=== PATIENT | female | born 1935 | race Caucasian/White ===

== ENCOUNTER 2017-08-09 15:11 | Emergency (ER) | payer MEDICARE, BC ==
[2017-08-09 16:12] LABS: BASOPHILS 0.2 % (0-2); EOSINOPHILS 0.4 % (0-7); HEMATOCRIT 35.9 % (36.0-48.0); HEMOGLOBIN 11.5 g/dL (12-16); IMMATURE GRANULOCYTES 0.2 % (0-5); LYMPHOCYTES 21.2 % (15-50); MCH 31.9 pg (26.0-34.0); MCV 99.4 fL (80.0-100.0); MEAN PLATELET VOLUME 11.2 fL (7.4-10.4); MONOCYTES 8.3 % (2-11); NEUTROPHILS 69.7 % (40-80); PLATELET COUNT 171 10x3/uL (130-400); RBC 3.61 10x6/uL (4.00-5.40); RDW 13.5 % (11.5-14.5); WBC 9.2 10x3/uL (4.8-10.8)
[2017-08-09 16:34] LABS: ALBUMIN 3.5 g/dL (3.4-5.0); ALKALINE PHOSPHATASE 61 U/L (46-116); ALT (SGPT) 25 U/L (10-68); CALC OSMOLALITY 280 mosm/kg (275-300); CALCIUM 9.2 mg/dL (8.5-10.1); CARBON DIOXIDE 24.9 mmol/L (21.0-32.0); CHLORIDE - SERUM 105 mmol/L (98-107); CREATININE - SERUM 1.4 mg/dL (0.6-1.3); GLUCOSE 101 mg/dL (74-106); POTASSIUM - SERUM 3.8 mmol/L (3.5-5.1); SODIUM 140 mmol/L (136-145); UREA NITROGEN 18 mg/dL (7-18); eGFR NON AFRICAN AMERICAN 38 mL/min (90-120)
[2017-08-09 16:37] LABS: CREATINE KINASE 57 UL (21-215); LIPASE 309 U/L (73-393); PRO BNP 278 pg/mL (0-450); TROPONIN-I < 0.017 ng/mL (0.000-0.060)
[2017-08-09 16:48] LABS: INR 1.08 (0.85-1.17); PROTIME 13.6 SECONDS (11.6-15.0)
[2017-08-09 17:34] LABS: APPEARANCE CLEAR (CLEAR); BILIRUBIN NEGATIVE (NEGATIVE); COLOR YELLOW (YELLOW); GLUCOSE NEGATIVE (NEGATIVE); KETONE NEGATIVE (NEGATIVE); NITRITE NEGATIVE (NEGATIVE); PROTEIN TRACE mg/dL (NEGATIVE); UROBILINOGEN NORMAL (NORMAL)
== END 2017-08-09 20:52 | disposition home or self-care (01) ==
LOC: D.ER 15:11
PROVIDERS: Family Medicine; Nurse Practitioner Family
DX: K57.32 Diverticulitis of large intestine without perforation or abscess without bleeding (principal); R10.9 Unspecified abdominal pain

== ENCOUNTER → 2019-02-14 08:27 | Outpatient (CLI) | payer MEDICARE ==
--- NOTE | 2019-02-17 12:08 | ST ---
PATIENT:MARIA R CABELLO MEDICAL RECORD: [id number] SEX: F LOCATION:[facility] ORDER #: ADMISSION DATE: 02/14/19 AGE OF PATIENT: 83 REFERRING PHYSICIAN: INTERPRETING PHYSICIAN: MALISSA GAUTHIER MD DATE OF SERVICE: 02/14/2019 PROCEDURE: Nuclear stress test. INDICATION: Angina, abnormal ECG, shortness of breath. TECHNIQUE: The patient was exercised on standard Lexiscan protocol with 33 mCi of sestamibi injected at peak stress, 11 mCi used previously for rest images. FINDINGS: Gated SPECT reveals preserved ejection fraction at 68% with good wall motion and thickening and brightening throughout all segments. SPECT imaging Cardiolite was used as myocardial fusion agent. There is homogeneous uptake throughout all segments at rest and stress with no evidence of inducible ischemia or previous infarction. OVERALL IMPRESSION: 1. This is a normal nuclear stress test with no evidence of inducible ischemia or previous infarction. 2. Gated SPECT reveals a preserved ejection fraction at 68%. In this patient with ongoing symptomatology, the current scan does not suggest the presence of hemodynamically significant coronary artery disease. Evaluate noncardiac etiology of chest pain. TRANSINT:[id number] Voice Confirmation ID: [id number] DOCUMENT ID: [id number] MALISSA GAUTHIER MD at 1208 CC: LIYAH HUIZAR [id number] DICTATION DATE: 02/16/19 1324 APPRENTICE COOK: 02/17/19 0736 [facility] CLI 02/14/19 [place] [id number] [place] [id number]
== END | disposition home or self-care (01) ==
LOC: D.HCCARDIO 08:27
PROVIDERS: ATTEND Internal Medicine Interventional Cardiology
DX: I20.9 Angina pectoris, unspecified (principal)

== ENCOUNTER 2019-03-15 10:43 | Outpatient (CLI) | payer MEDICARE ==
[~2019-03-15] VITALS: Ht 165.1 cm; Wt 68.6 kg
--- NOTE | ~2019-03-15 | HEMODYNAMI ---
PATIENT:MARIA R CABELLO MEDICAL RECORD: [id number] : 39 LOCATION:[facility] ADMISSION DATE: 03/15/19 Generatedon:03/15/201913:32 Patient name: MARIA R CABELLO Patient #: [id number] : 1935 Date of study: 03/15/2019 Page: Of Hemodynamic Procedure Report Patient Data Patient Demographics Procedure consent was obtained First Name: MARIA R Gender: Female Last Name: DESTINEY : 1935 Middle Initial: F Age: 83 year(s) Patient #: [id number] Race: Unknown SSN: [id number] Additional ID: [id number] Contact details [address]: [address] [place] [address] State: [place] City: [place] Zip code: [address] Past Medical History Allergies Allergen Reaction Date Comments Reported Other allergy 03/15/2019 NSAIDS Admission Admission Data Admission Date: 03/15/2019 Admission Time: 10:43 Arrival Date: 03/15/2019 Arrival Time: 0:00 Admit Source: Other Insurance Payor: Medicaid [facility] #: [id number] Height (in.): 65 BSA: 1.77 (m2) Height (cm.): 165.1 BMI: 25.63 (kg/m2) Weight (lbs.): 154 Weight (kg.): 69.85 Lab Results Lab Result Date: 03/15/2019 Lab Result Time: 0:00 Biochemistry Name Units Result Min Max BUN mg/dl 23 --(----)-* 7 18 Creatinine mg/dl 1.3 --(---*)-- 0.6 1.3 eGFR ml/min 42 *-(----)-- 90 120 NONAFRICAN CBC Name Units Result Min Max Hemoglobin g/dl 12.2 *-(----)-- 13.5 17.5 Procedure Procedure Types Cath Procedure Diagnostic Procedure LHC LHC w/Coronaries Procedure Description Procedure Date Procedure Date: 03/15/2019 Procedure Start Time: 13:21 Procedure End Time: 13:30 Procedure Staff Name Function Xavier John MD Performing Physician Jacqueline Farias RT Monitor Kassidy Lundberg RT Scrub Isabel Tiwari RN Nurse Procedure Data Cath Procedure Fluoroscopy Diagnostic fluoroscopy Total fluoroscopy Time: 1 time: 1 min min Diagnostic fluoroscopy Total fluoroscopy dose: 176 dose: 176 mGy mGy Contrast Material Contrast Material Type Amount (ml) Isovue 300 48 Entry Location Entry Primary Successful Side Size Upsize Upsize Entry Closure Succes sful Closure Location (Fr) 1 (Fr) 2 (Fr) Remarks Device Remarks Femoral Right 5 Fr Exoseal artery Estimated blood loss: 5 ml Diagnostic catheters Device Type Used For End Catheter Placement MULTIPACK JL 4.0 5Fr Procedure catheter MULTIPACK 3DRC 5Fr Procedure catheter MULTIPACK Pigtail 5 Fr Ventriculography catheter Procedure Complications No complications Procedure Medications Medication Administration Route Dosage 0.9% NaCl I.V. 100 ml/hr Oxygen etCO2 Nasal cannula 2 l/min Lidocaine 2% added to field 20 Heparin Flush Bag added to field 2 bags (1000units/500ml NS) Versed I.V. 2 mg Fentanyl I.V. 50 mcg Hydralizine I.V. 40 mg Hemodynamics Rest BSA: 1.77 (m2) HGB: 12.2 (g/dl) O2 Consumption: Estimated: 168.06 (ml/min) O2 Co nsumption indexed: Estimated:94.95 (ml/min/m) Heart Rate: 84 (bpm) Pressure Samples Time Site Value (mmHg) Purpose Heart Use Rate(bpm) 13:25 LV 202/32,35 Snapshot 84 Gradients Valve Time Site Site Mean SEP/DFP Peak To Heart Use 1 2 (mmHg) (sec/min) Peak Rate (mmHg) (bpm) Aortic 13:26 LV AO 82 Snapshots Pre Cath Intra NCS Post Cath Vital Signs Time Heart Resp SPO2 etCO2 NIBP (mmHg) Rhythm Pain Sedation Rate (ipm) (%) (mmHg) Status Level (bpm) 13:13:36 62 18 100 30.8 168/75(106) NSR 0 (11) 10(A) , No pain 13:17:58 64 16 100 30.1 167/77(111) NSR 0 (11) 10(A) , No pain 13:22:18 63 18 100 30.8 166/81(109) NSR 0 (11) 10(A) , No pain 13:27:17 80 16 100 33.1 161/82(109) NSR 0 (11) 10(A) , No pain Medications Time Medication Route Dose Verified Delivered Reason Notes E ffectiveness by by 13:12:31 0.9% NaCl I.V. 100 Xavier Isabel used for ml/hr AlvaroPaul Tiwari procedure MD RUSHING 13:12:37 Oxygen etCO2 2 Xavier Isabel used for Nasal l/min [place] procedure cannula MD RUSHING 13:12:42 Lidocaine 2% added 20ml Xavier [place] for local to vial [facility] anesthetic field MD BISHOP 13:12:46 Heparin Flush added 2 Xavier Xavier used for Bag to bags [facility] procedure (1000units/500ml field MD BISHOP NS) 13:17:28 Versed I.V. 2 mg Xavier Isabel for sedation [facility] Tiwari MD, RN 13:17:40 Fentanyl I.V. 50 Xavier Isabel for sedation mcg [facility] Tiwari MD, RN 13:29:06 Hydralizine I.V. 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 12:52:32 Maximum allowable contrast dose (3.7 X eGFR X 0.75)116 ml. 13:01:19 Admit Source: Other 13::23 Arrival Date: 03/15/2019 12:00:00 AM 13:01:25 Insurance Payor : Medicaid 13:02:01 Patient Height : 65 inches 13:02:06 Patient Weight : 154 lbs 13:02:59 ACC Patient presents with Stable Angina CCS Anginal Class 3--Marked limitation of physical activity, angina occurs with ordinary activity.. 13:03:02 Procedure Status Elective Heart Cath (OP). 13:03:06 Isabel Te RN sent for patient. Start room use. 13:03:08 Time tracking: Regular hours (M-F 7:00 - 5:00) 13:03:13 Plan of Care:Hemodynamics will remain stable., Cardiac rhythm will remain stable., Comfort level will be maintained., Respiratory function will remain adequate., Patient/ family verbilizes understanding of procedure., Procedure tolerated without complication., Recovers from procedure without complications.. 13:03:19 Patient received from Pre/Post Procedure Room to CCL 2 Alert and oriented. Tansferred to table in Supine position. 13:03:22 Warm blankets applied, and lori hugger turned on for patient comfort. 13:03:22 Correct patient and procedure confirmed by team. 13:03:33 H&P Date Dictated: 03/08/2019 Within 30 days and on chart.. 13:03:34 Pre-procedure instructions explained to patient. 13:03:37 Family in waiting room. 13:03:40 Patient NPO since Midnight. 13:04:00 Patient allergic to Other allergyNSAIDS 13:04:04 Is the patient allergic to Iodine/contrast media? No. 13:04:19 Is patient on blood thinner?No 13:04:25 Patient diabetic? No. 13:04:34 Risk of Mortality: 1.0 13:04:38 Risk of blood transfusion: 6.5 13:04:41 Risk of GUI: 6.3 13:12:22 Vital chart was started 13:12:31 0.9% NaCl 100 ml/hr I.V. was administered by Isabel Tiwari RN; used for procedure; Verbal order read back and verified. 13:12:37 Oxygen 2 l/min etCO2 Nasal cannula was administered by Isabel Tiwari RN; used for procedure; Verbal order read back and verified. 13:12:42 Lidocaine 2% 20ml vial added to field was administered by Xavier John MD; for local anesthetic; Verbal order read back and verified. 13:12:46 Heparin Flush Bag (1000units/500ml NS) 2 bags added to field was administered by Xavier John MD; used for procedure; Verbal order read back and verified. 13:13:08 Snore? Yes 13:13:19 Sleep apnea? No 13:13:24 Airway obstruction? Yes COPD 13:15:56 Dentures? No ? 13:16:04 Patient pain scale 0/10 ?. 13:16:11 IV patent on arrival in right antecubital with 0.9% NaCl at [facility]. 13:16:17 Right groin area was prepped with chlora-prep and draped in sterile fashion 13:16:19 Alarms reviewed by R. N. 13:16:20 Sharps counted by scrub and verified by R.N. 13:16:21 Physician paged 13:16:22 Physician arrived 13:16:23 --------ALL STOP TIME OUT------ 13:16:24 Final Timeout: patient, procedure, and site verified with staff and physician. All members of the team are in agreement. 13:16:25 Right groin site verified by team. 13:16:31 Fire Safety Assessment: A--An alcohol-based skin anteseptic being used preoperatively., C--Open oxygen or nitrous oxide is being used., D--An ESU, laser, or fiber-optic light is being used. 13:16:36 Physical assessment completed. ASA score P 2 - A patient with mild systemic disease as per Xavier John MD. 13:16:42 Sedation plan: IV Moderate Sedation Medication:Versed, Fentanyl 13:17:28 Versed 2 mg I.V. was administered by Isabel Tiwari RN; for sedation; Verbal order read back and verified. 13:17:40 Fentanyl 50 mcg I.V. was administered by Isabel Tiwari RN; for sedation; Verbal order read back and verified. 13:21:50 Use device set Femoral Dx 13:21:54 Procedure started. 13:21:54 Full Disclosure recording started 13:21:57 Local anesthetic to right femoral artery with Lidocaine 2% by Xavier John MD.INITIAL ACCESS ONLY 13:22:07 A 5 Fr sheath was inserted into the Right Femoral artery 13:22:24 ACIST Syringe (87262) opened to sterile field. 13:22:24 Bag Decanter () opened to sterile field. 13:22:25 Medline Cath Pack ([id number]) opened to sterile field. 13:22:26 ACIST Hand Control (13531) opened to sterile field. 13:22:26 ACIST Manifold (07240) opened to sterile field. 13:22:28 DIAGNOSTIC Multipack 5Fr catheter set (SQ1950) opened to sterile field. 13:22:29 Tegaderm 4 x 4 (1626W) opened to sterile field. 13:22:31 SHEATH 5FR [place] (YQS698) opened to sterile field. 13:22:32 EMERALD Guide Wire (959-383) opened to sterile field. 13:22:38 A MULTIPACK JL 4.0 5Fr catheter was advanced over the wire and used for Procedure. 13:23:11 LCA angiography performed. 13:24:48 Catheter removed. 13:24:57 A MULTIPACK 3DRC 5Fr catheter was advanced over the wire and used for Procedure. 13:25:03 RCA angiography performed. 13:25:05 ACCDominant side:Left 13:25:08 Catheter removed. 13:25:14 A MULTIPACK Pigtail 5 Fr catheter was advanced over the wire and used for Ventriculography. 13:25:18 Zero performed for pressure channel P1 13:25:20 Zero performed for pressure channel P1 13:25:23 Zero performed for pressure channel P1 13:25:25 Zero performed for pressure channel P1 13:25:32 Zero performed for pressure channel P1 13:25:36 Zero performed for pressure channel P1 13:25:39 Zero performed for pressure channel P1 13:26:23 EF : 55 % 13:26:26 Catheter removed. 13:27:20 EXOSEAL 5Fr (EX500) opened to sterile field. 13:27:36 Sheath removed intact; hemostasis achieved with Exoseal to the Right Femoral artery. 13:27:38 Procedure ended.(Physican Out) 13:27:51 Fluoroscopy time 01.00 minutes. 13:27:56 Fluoroscopy dose: 176 mGy 13:27:56 Flurop Dose total: 176 13:28:06 Dose Area Product 9547 mGy/cm. 13:28:12 Contrast amount:Isovue 300 48ml. 13:28:49 Maximum allowable dose exceeded? No. 13:28:57 Insertion/operative site no bleeding no hematoma. 13:29:05 Post-op/insertion site Right Femoral artery dressed using a 4 x 4 and Tegaderm. 13:29:06 Hydralizine 40 mg I.V. was administered by Isabel Tiwari RN; for hypertension; Verbal order read back and verified. 13:29:07 Post Procedure Pulses reassessed and unchanged 13:29:18 Post-procedure physical assessment completed. ASA score P 2 - A patient with mild systemic disease as per Xavier John MD. 13:29:22 Post procedure rhythm: sinus rhythm 13:29:24 Estimated blood loss: 5 ml 13:29:26 Post procedure instruction explained to patient.Patient verbalizes understanding. 13:29:33 Procedure and supply charges have been captured, reviewed, submitted and are correct. 13:29:50 Procedure Complication : No complications 13::53 Vital chart was stopped 13:29:55 [facility] Findings: mild to moderate CAD (<70%) 13:29:58 Operative report dictated upon procedure completion. 13:29:58 See physician's report for complete and final results. 13:30:00 Report given to Pre/Post Procedure Room. 13:30:02 Patient transfered to Pre/Post Procedure Room with Stretcher. 13:30:04 Procedure ended. 13:30:04 Full Disclosure recording stopped 13:30:09 End room use (Document Last) 13:30:39 End room use (Document Last) Device Usage Item Name Manufacture Quantity Catalog Hospital Part Current Minimal L ot# / Number Charge Number Stock Stock Serial# Code ACIST Acist 1 04528 461012 844320 516240 20 Syringe Medical (73872) Systems Inc Bag Microtek 1 792289 37399 564926 5 Decanter Medical Inc. () Medline Medline 1 [id number] 110757 91146 657704 5 Cath Pack ([id number]) ACIST Hand Acist 1 81892 264872 021383 218661 5 Control Medical (71409) Systems Inc ACIST Acist 1 52708 232521 867853 886051 5 Manifold Medical (64816) Systems Inc DIAGNOSTIC Cardinal 1 [id number] 401858 87884 951268 30 anchor.travel 5Fr catheter set (KK5174) Tegaderm 4 3M 1 1626W 762431 995082 453128 5 x 4 (1626W) SHEATH 5FR Terumo 1 IHY710 704643 526840 327824 5 [place] (QKL438) EMERALD Cardinal 1 502-455 955980 356279 993828 5 Guide Wire [facility] (502455) MULTIPACK Cardinal 1 384702 5 JL 4.0 5Fr Health catheter MULTIPACK Cardinal 1 443664 5 3DRC 5Fr Health catheter MULTIPACK Cardinal 1 023035 5 Pigtail 5 Health Fr catheter EXOSEAL 5Fr Cardinal 1 EX500 934439 180185 903502 10 (EX500) Health Signature Audit Alva Stage Time Signature Unsigned Intra-Procedure 03/15/2019 Jacqueline Farias 1:30:39 PM RT(R) Intra-Procedure 03/15/2019 Isabel Tiwari 1:31:15 PM RN Intra-Procedure 03/15/2019 Xavier Michele 1:32:11 PM Paul BISHOP Signatures Performing Physician : Signature : Xavier John MD Date : Time : Monitor : Jacqueline Farias Signature : RT Date : Time : Nurse : Isabel Tiwari RN Signature : Date : Time : [place] [address] [place] [address]
[2019-03-15] MEDS ORDERED: SYNTHROID125 MCG PO (11:22)
[2019-03-15] MEDS ORDERED: ESTRACE2 MG PO (11:22)
[2019-03-15] MEDS ORDERED: ADDERALL 20 MG20 M1 PO (11:22)
[2019-03-15] MEDS ORDERED: HYDROCODON-ACE1 EA10 PO (11:23)
[2019-03-15 11:28] VITALS: BP 101/39; Ht 165.1 cm; Wt 68.6 kg
[2019-03-15 11:59] LABS: BASOPHILS 0.7 % (0-2); EOSINOPHILS 3.2 % (0-7); HEMATOCRIT 37.4 % (36.0-48.0); HEMOGLOBIN 12.2 g/dL (12-16); IMMATURE GRANULOCYTES 0.2 % (0-5); LYMPHOCYTES 29.4 % (15-50); MCH 31.4 pg (26.0-34.0); MCHC 32.6 g/dL (31.0-37.0); MCV 96.4 fL (80.0-100.0); MEAN PLATELET VOLUME 10.9 fL (7.4-10.4); MONOCYTES 7.9 % (2-11); NEUTROPHILS 58.6 % (40-80); PLATELET COUNT 159 10x3/uL (130-400); RBC 3.88 10x6/uL (4.00-5.40); RDW 13.1 % (11.5-14.5); WBC 5.6 10x3/uL (4.8-10.8)
[2019-03-15 12:07] LABS: ANION GAP 12.5 mmol/L (8-16); CALCIUM 8.9 mg/dL (8.5-10.1); CARBON DIOXIDE 26.6 mmol/L (21.0-32.0); CHOL - HDL RATIO 3.7 ratio (2.3-4.1); CREATININE - SERUM 1.3 mg/dL (0.6-1.3); LDL-HDL RATIO 1.8 ratio (1.5-3.5); POTASSIUM - SERUM 4.1 mmol/L (3.5-5.1)
--- NOTE | 2019-03-15 13:45 | NUR ---
PT ARRIVED BY STRETCHER. PLACED ON MONITOR. ASSESSMENT COMPLETED. CALL LIGHT WITHIN REACH.
--- NOTE | 2019-03-15 14:00 | NUR ---
PT RESTING COMFORTABLY. RIGHT GROIN DRESSING C/D/I. NO S/S OF HEMATOMA NOTED. CALL LIGHT WITHIN REACH. FRIEND AT BEDSIDE. VSS.
--- NOTE | 2019-03-15 14:30 | NUR ---
PT RESTING COMFORTABLY. RIGHT GROIN DRESSING C/D/I. NO S/S OF HEMATOMA NOTED. CALL LIGHT WITHIN REACH. IV FLUIDS INFUSING PER MD ORDERS. HEAD OF BED INC SLIGHTLY. TOLERATING WELL. WILL CONTINUE TO MONITOR.
--- NOTE | 2019-03-15 15:00 | NUR ---
BP 109/55 HR 89 RIGHT GROIN DRESSING C/D/I. NO S/S OF HEMATOMA NOTED
--- NOTE | 2019-03-15 15:20 | NUR ---
HEAD OF BED AT 30 DEGREES. BP STABLE. RIGHT GROIN DRESSING C/D/I. NO S/S OF HEMATOMA NOTED. CALL LIGHT WITHIN REACH. PT SET UP WITH SANDWICH TRAY AND DRINK. FRIEND AT BEDSIDE. PT GIVEN WARM BLANKETS PER REQUEST.
--- NOTE | 2019-03-15 16:01 | NUR ---
BP STABLE 108/63. HR 95. RIGHT GROIN DRESSING C/D/I. NO S/S OF HEMATOMA NOTED. WILL LET PT UP TO GET DRESSED AND SEE HOW SHE FEELS PRIOR TO D/C'ING PIV. PT ALERT.
--- NOTE | 2019-03-15 16:20 | NUR ---
PT UP AND DRESSED WITH ASSIST. TO RESTROOM AND VOIDED WITHOUT DIFFICULTY. PIV D/C'D WITH CATH TIP INTACT. TOLERATED WELL. RIGHT GROIN DRESSING C/D/I. NO S/S OF HEMATOMA NOTED. DISCUSSED DISCHARGE INSTRUCTIONS WITH PT. SHE VOICED UNDERSTANDING.
--- NOTE | 2019-03-15 16:25 | NUR ---
PT TAKEN OUT TO VEHICLE BY WHEELCHAIR. NO S/S OF DISTRESS NOTED. ALL BELONGINGS AND PAPERWORK IN HAND.
--- NOTE | 2019-03-17 09:07 | OP ---
PATIENT NAME: MARIA R CABELLO MEDICAL RECORD: [id number] :37 LOCATION:[facility] ADMISSION DATE: SURGEON: CARLOS VILLAFANA MD DATE OF OPERATION: 03/15/2019 PROCEDURE: Left heart catheterization, selective coronary angiography, right femoral artery approach. CATHETERS: A 5-Cuban sheath, 5/4 left and right Farhan, 5/4 pig. The procedure was well tolerated. The patient returned to galeana, sheath removed. ExoSeal device placed. FINDINGS: Left ventriculography in 30-degree SANDERS view; normal wall motion, normal systolic function. CORONARY ANATOMY: LEFT MAIN: Left main is free of disease. LAD: Free of disease in the diagonal system. CIRCUMFLEX: Free of disease in the marginal system. RIGHT CORONARY ARTERY: Dominant artery, gives rise to PDA, free of disease. IMPRESSION: Normal left ventricular systolic function, normal coronary anatomy. TRANSINT:[id number] Voice Confirmation ID: [id number] DOCUMENT ID: [id number] CARLOS VILLAFANA MD at 0907 CC: [id number] DICTATION DATE: 03/15/19 1335 ASSISTANT THERAPY AIDE: 03/15/19 1402 DEP CLI 03/15/19 [facility] [address] [place] [address]
== END 2019-03-15 16:25 | disposition home or self-care (01) ==
LOC: D.CATH 10:43
PROVIDERS: ATTEND Internal Medicine Interventional Cardiology
DX: I20.9 Angina pectoris, unspecified (principal)

== ENCOUNTER 2020-02-14 13:48 | Emergency (ER) | payer OTHER ==
[~2020-02-14] VITALS: Ht 165.1 cm; Wt 67.7 kg
[~2020-02-14 13:48] MED LIST: ADDERALL 20 MG20 M1 PO; ESTRACE2 MG PO; HYDROCODON-ACE1 EA10 PO; SYNTHROID125 MCG PO
[2020-02-14 14:13] VITALS: Ht 165.1 cm; Wt 67.7 kg
[2020-02-14 15:29] LABS: BASOPHILS 1.4 % (0-2); EOSINOPHILS 2.6 % (0-7); HEMATOCRIT 40.4 % (36.0-48.0); HEMOGLOBIN 13.2 g/dL (12-16); LYMPHOCYTES 38.7 % (15-50); MCH 31.8 pg (26.0-34.0); MCHC 32.7 g/dL (31.0-37.0); MCV 97.3 fL (80.0-100.0); MONOCYTES 4.9 % (2-11); NEUTROPHILS 52.4 % (40-80); RBC 4.15 10x6/uL (4.00-5.40); RDW 13.1 % (11.5-14.5); WBC 4.9 10x3/uL (4.8-10.8)
[2020-02-14 15:46] LABS: ANION GAP 16.9 mmol/L (8-16); CALCIUM 9.4 mg/dL (8.5-10.1); CARBON DIOXIDE 23.3 mmol/L (21.0-32.0); POTASSIUM - SERUM 4.2 mmol/L (3.5-5.1)
[2020-02-14 15:47] LABS: PLATELET COUNT 208 10x3/uL (130-400)
[2020-02-14 15:53] LABS: ALBUMIN 4.2 g/dL (3.4-5.0); BILIRUBIN - TOTAL 0.33 mg/dL (0.2-1.3); PROTEIN - SERUM 8.2 g/dL (6.4-8.2)
[2020-02-14] MEDS ORDERED: ELIQUIS2.5 MG PO (16:20)
[2020-02-14 18:47] VITALS: BP 156/79
== END 2020-02-14 18:47 | disposition home or self-care (01) ==
LOC: D.ER 13:48
PROVIDERS: Family Medicine
DX: I82.402 Acute embolism and thrombosis of unspecified deep veins of left lower extremity (principal); E07.9 Disorder of thyroid, unspecified; J44.9 Chronic obstructive pulmonary disease, unspecified